=== PATIENT | female | born 1945 | race Caucasian/White ===

== ENCOUNTER 2024-05-21 07:50 | Outpatient (CLI) | payer MEDICARE, OTHER, SELFPAY | END 2024-05-21 07:51 | disposition home or self-care (01) | LOC: INJ CL 07:51 | PROVIDERS: Visit Provider Family Medicine | DX: M54.16 Radiculopathy, lumbar region (principal); M51.369 Other intervertebral disc degeneration, lumbar region without mention of lumbar back pain or lower extremity pain | CPT/HCPCS: 64483; 64484; J1100; Q9966 ==

== ENCOUNTER 2024-06-06 15:55 | Outpatient (CLI) | payer MEDICARE, OTHER, SELFPAY ==
--- NOTE | 2024-06-06 15:43 | CRLHL7_ITS ---
For Patients: As a result of the Century Cures Act, medical imaging exams and procedure reports are released immediately into your electronic medical record. You may view this report before your referring provider. If you have questions, please contact your health care provider. INDICATION: Leg pain and swelling. TECHNIQUE: Ultrasound venous duplex bilateral lower extremity. Compression venous exam was performed using mascorro-scale, color Doppler, and spectral Doppler analysis. COMPARISON: None. FINDINGS: Deep veins: Sonographic imaging demonstrates the bilateral common femoral, deep femoral, superficial femoral, popliteal, and posterior tibial veins to be fully compressible with normal color Doppler blood flow. Superficial veins: Greater saphenous veins are fully compressible. No popliteal cyst. IMPRESSION: No DVT in the bilateral lower extremities Dictated by Dayana Cote MD @ 06/06/2024 5:54:58 PM (Electronically Signed)
== END 2024-06-06 15:56 | disposition home or self-care (01) ==
PROVIDERS: PCP Family Medicine; Visit Provider Family Medicine
DX: R22.41 Localized swelling, mass and lump, right lower limb (principal); R22.42 Localized swelling, mass and lump, left lower limb
CPT/HCPCS: 93970

== ENCOUNTER 2024-07-05 12:36 | Outpatient (CLI) | payer MEDICARE, OTHER, SELFPAY | END 2024-07-05 12:37 | disposition home or self-care (01) | LOC: INJ CL 12:38 | PROVIDERS: PCP Family Medicine; Visit Provider Family Medicine | DX: M54.16 Radiculopathy, lumbar region (principal); M51.369 Other intervertebral disc degeneration, lumbar region without mention of lumbar back pain or lower extremity pain | CPT/HCPCS: 64483; 64484; J1100; Q9966 ==

== ENCOUNTER 2024-10-01 10:53 | Outpatient (CLI) | payer MEDICARE, SELFPAY | END 2024-10-01 10:54 | disposition home or self-care (01) | LOC: INJ CL 10:53 | PROVIDERS: PCP Family Medicine; Visit Provider Family Medicine | DX: M54.16 Radiculopathy, lumbar region (principal); M51.369 Other intervertebral disc degeneration, lumbar region without mention of lumbar back pain or lower extremity pain | CPT/HCPCS: 64483; 64484; J1100; Q9966 ==

== ENCOUNTER 2025-03-18 10:13 | Outpatient (CLI) | payer MEDICARE, SELFPAY | END 2025-03-18 10:14 | disposition home or self-care (01) | LOC: INJ CL 10:15 | PROVIDERS: PCP Family Medicine; Visit Provider Family Medicine | DX: M54.16 Radiculopathy, lumbar region (principal); M51.369 Other intervertebral disc degeneration, lumbar region without mention of lumbar back pain or lower extremity pain | CPT/HCPCS: 64483; J1100; Q9966 ==